=== PATIENT | female | born 1980 | race Native Hawaiian/Other Pacific Islander ===

== ENCOUNTER 2018-07-01 21:19 | Emergency (ER) | payer OTHER ==
[2018-07-01 21:29] VITALS: O2SAT 100
[2018-07-01 21:30] VITALS: BMI 23.0
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
[2018-07-01 23:42] VITALS: BP 118/71; PULSE 71; RESP 18; TEMP 98
== END 2018-07-01 23:41 | disposition home or self-care (01) ==
LOC: H.ER 21:19
DX: Z63.0 Problems in relationship with spouse or partner (principal)